=== PATIENT | female | born 1970 | race Caucasian/White ===

== ENCOUNTER 2017-02-11 08:10 | Day surgery (SDC) | payer OTHER ==
[~2017-02-11] VITALS: Ht 157.5 cm; Wt 58.5 kg
[~2017-02-11 08:10] MED LIST: CEFAZOLIN 1 GM INJ ONE; CEFAZOLIN 1 GM/50 ML (PMX) 50 ML IVPB ONE; SOD CHLORIDE 0.9% 1,000 ML IV SCH; no meds
[2017-02-11] MEDS ORDERED: DICL75TA2 PO (08:46)
[2017-02-11] MEDS ORDERED: CYCL-319 PO (08:47)
[2017-02-11 08:59] VITALS: Ht 157.5 cm; Wt 58.5 kg
[2017-02-11 09:05] VITALS: BP 119/74; PULSE 79; RESP 16
[2017-02-11] MEDS ORDERED: PROPOFOL 100 ML ONE (09:53)
[2017-02-11] MEDS ORDERED: CEFAZOLIN 1 GM INJ ONE (10:11)
[2017-02-11 10:46] VITALS: BP 102/58; PULSE 88; RESP 14
[2017-02-11 10:52] VITALS: BP 103/55; PULSE 84; RESP 14
[2017-02-11 10:57] VITALS: BP 101/58; PULSE 77; RESP 14
[2017-02-11] MEDS ORDERED: ONDANSETRON 4 MG INJ IV PRN (11:00)
[2017-02-11] MEDS ORDERED: FENTAnyl 50 MCG/ML VIAL IV PRN ×3 (11:00)
[2017-02-11] MEDS ORDERED: LABETALOL HCL 20MG INJ IV PRN (11:00)
[2017-02-11] MEDS ORDERED: EPHEDrine SULFATE 50 MG/5 ML SYG IV PRN (11:00)
[2017-02-11] MEDS ORDERED: DIPHENHYDRAMINE 50 MG INJ IV PRN (11:00)
[2017-02-11] MEDS ORDERED: hydrALAzine 20 MG INJ IV PRN (11:00)
[2017-02-11] MEDS ORDERED: MEPERIDINE 25 MG INJ IV PRN (11:00)
[2017-02-11] MEDS ORDERED: OXYCODONE/ACETAMINOPHEN (5/325) TAB PO PRN ×2 (11:00)
[2017-02-11 11:02] VITALS: BP 107/75; PULSE 76; RESP 14
[2017-02-11 11:20] VITALS: BP 124/74; PULSE 70; RESP 18
--- NOTE | 2017-02-16 10:42 | OPR ---
DATE OF OPERATION: 02/11/2017 PREOPERATIVE DIAGNOSIS: Recurrent phyllodes tumor, right breast. POSTOPERATIVE DIAGNOSIS: Recurrent phyllodes tumor, right breast. PROCEDURES: Partial mastectomy. ANESTHESIA: General. ANESTHESIOLOGIST: Dr. Hanks SURGEON: Ifeanyi Glaser MD OPERATIONS SUPERVISOR: Dr. 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 She presented for recurrent mass in that area, highly suspicious for recurrence. She was counseled as to the need for partial mastectomy. She consented and was scheduled for surgery. OPERATIVE PROCEDURE: Patient was brought to the operating theater and placed under general anesthesia. The right breast was prepped and draped in usual sterile fashion. The previous surgical incisional scar was in the upper outer quadrant of the breast. It was reexcised with a 15 blade scalpel. Subcutaneous tissue was dissected with cautery. The skin edges were then elevated with skin hooks, and wide circumferential dissection of the tissue with associated mass took place with cautery taking great care to ensure adequate margin. The specimen was elevated, transected oriented and sent for permanent pathologic analysis. The wound was irrigated. Minimal bleeding was controlled with cautery. The skin was then reapproximated with 4-0 Vicryl sutures in deep dermal interrupted fashion. Final skin approximation took place with 5-0 PDS suture in subcuticular fashion. Benzoin and Steri-Strips were applied. Patient tolerated procedure well. Estimated blood loss was 20 mL. There were no complications. The patient was transported in stable condition to the recovery room, where a circumferential compression dressing was applied. Dictated By: Ifeanyi Glaser MD /aditi/jane /Document#: [id number]
== END 2017-02-11 13:05 | disposition home or self-care (01) ==
LOC: SDS 08:10
PROVIDERS: ATTEND Surgery Surgical Oncology
DX: D24.1 Benign neoplasm of right breast (principal)
CPT/HCPCS: 19301; 84703; 88307; J0690; J3010; Z7512; Z7610